=== PATIENT | female | born 1975 | race American Indian/Alaskan Native ===

== ENCOUNTER 2017-08-14 11:27 | Emergency (ER) | payer MEDICAID ==
[2017-08-14 12:39] VITALS: BP 151/95
--- NOTE | 2017-08-14 13:39 | Emergency Department Report ---
ED Headache HPI - General Chief Complaint: Headache Stated Complaint: HEADACHE FOR A COUPLE MONTHS Time Seen by Provider: 08/14/17 13:38 - History of Present Illness Allergies/Adverse Reactions: Allergies No Known Allergies Allergy (Unverified 08/14/17 12:35) ED Review of Systems ROS: Stated complaint: HEADACHE FOR A COUPLE MONTHS Other details as noted in HPI ED Past Medical Hx - Past Medical History Previous Medical History?: Yes Hx Hypertension: Yes Hx Diabetes: Yes Hx Psychiatric Treatment: Yes (Bipolar) Additional medical history: DVT - Surgical History Additional Surgical History: Sinus, Tonsillectomy, tubes in ears. - Social History Smoking Status: Never Smoker Substance Use Type: None ED Physical Exam - General Limitations: No Limitations ED Course Vital Signs 08/14/17 12:35 Temperature 98.5 F Pulse Rate 94 H Respiratory 20 Rate Blood Pressure 151/95 O2 Sat by Pulse 97 Oximetry Critical care attestation.: If time is entered above; I have spent that time in minutes in the direct care of this critically ill patient, excluding procedure time. ED Disposition Condition: Stable Referrals: PARMJIT BHATIA [Other] - 3-5 Days
--- NOTE | 2017-08-14 14:41 | Emergency Department Report ---
Chief Complaint: Headache Stated Complaint: HEADACHE FOR A COUPLE MONTHS Time Seen by Provider: 08/14/17 13:38 - HPI History of Present Illness: Patient here reports that she was scheduled to have sinus surgery at [facility] a couple months ago and they gave her anesthesia and she went into cardiac arrest after anesthesia and was resuscitated but she was out for 8 minutes. She said that she was on life support for a while. Family reports that patient has memory loss, headache and blurred vision 2 months. Patient said that she's been taking [id number] medication for headache but it's not helping. She said she had no follow-up since she had a cardiac arrest and she has not seen any specialists. Patient did not have sinus surgery due to cardiac arrest. Patient was discharged home from [facility] with no follow-up visit per patient. Neither the nausea or vomiting. - ROS Review of Systems: All systems are negative unless stated in HPI above. - Exam Vital Signs: Vital Signs 08/14/17 12:35 Temperature 98.5 F Pulse Rate 94 H Respiratory 20 Rate Blood Pressure 151/95 O2 Sat by Pulse 97 Oximetry Physical Exam: Gen.: A 41-year-old female in no acute distress. Mini neurological exam: GCS at 15, speech is clear and fluid. No facial drooping. Patient alert and oriented 3 Head: Traumatic, normocephalic. No contusion or abrasion noted. MSE screening note: Focused history and physical exam performed. Due to findings the following was ordered: ED Medical Decision Making - Medical Decision Making MDM: She has screened in emergency room by provider and to be seen by M.D. Appropriate diagnostics and lab ordered. ED Disposition for MSE Condition: Stable Referrals: PARMJIT BHATIA [Other] - 3-5 Days
[2017-08-14 15:25] LABS: Alanine Aminotransferase 10 units/L (7-56); Albumin 4.3 g/dL (3.9-5); Alkaline Phosphatase 64 units/L (35-129); Anion Gap 17 mmol/L; BUN/Creatinine Ratio 13; Blood Urea Nitrogen 8 mg/dL (7-17); Calcium 9.4 mg/dL (8.4-10.2); Carbon Dioxide 27 mmol/L (22-30); Chloride 104.5 mmol/L (98-107); Glucose 96 mg/dL (65-100); Potassium 3.7 mmol/L (3.6-5.0); Sodium 145 mmol/L (137-145); Total Protein 6.5 g/dL (6.3-8.2)
[2017-08-14 15:31] LABS: Bacteria,Urine 2+ /HPF (Negative); Bilirubin,Urine NEG (Negative); Blood,Urine NEG (Negative); Ketones,Urine NEG (Negative); Leukocyte Esterase,Urine LG (Negative); Mucus,Urine FEW /HPF; Nitrite,Urine POS (Negative); Protein,Urine <15 mg/dL mg/dL (Negative); Urobilinogen,Urine < 2.0 mg/dL (<2.0)
[2017-08-14 15:33] LABS: Basophils % (Auto) 0.9 % (0.0-1.8); Eosinophils % (Auto) 2.6 % (0.0-4.3); Hematocrit 41.2 % (30.3-42.9); Hemoglobin 13.4 gm/dl (10.1-14.3); Mean Corpuscular HGB Conc 33 % (30-34); Mean Corpuscular Hemoglobin 30 pg (28-32); Mean Corpuscular Volume 94 fl (79-97); Platelet Count 199 K/mm3 (140-440); Red Blood Count 4.41 M/mm3 (3.65-5.03); White Blood Count 6.3 K/mm3 (4.5-11.0)
[2017-08-14 15:41] LABS: INR 0.98 (0.87-1.13); Partial Thromboplastin Time 29.1 Sec. (24.2-36.6)
--- NOTE | 2017-08-14 16:06 | Cat Scan Report ---
CT scan of head without IV contrast: History: Post cardiac arrest with LOC for 8 minutes. Findings: Ventricles are normal in size and midline in location. No evidence of acute ischemia, hemorrhage or mass. No definite extra-axial fluid collection. Normal brainstem and cerebellum. Impression: Findings as detailed above.
--- NOTE | 2017-08-14 16:07 | Cat Scan Report ---
CT scan of sinuses: History: Post sinus surgery. Findings: The sinuses are well pneumatized. The wall appears intact. Minimal mucosal thickening is noted of right and left maxillary sinus. Minimal hypertrophy of the turbinates. Nasal septum is midline. Osteomeatal complexes are patent. Impression: No acute changes in the sinuses.
[2017-08-14] MEDS ORDERED: FIORICET PO ONE (16:35)
--- NOTE | 2017-08-14 16:39 | Emergency Department Report ---
HPI - General Chief Complaint: Headache Time Seen by Provider: 08/14/17 13:38 - HPI HPI: Room 34 The patient is a 41-year-old female presenting with a chief complaint of headache. The patient states she had sinus surgery in February 2017 and was "over medicated" leading to her "heart stopped for 8 minutes." The patient states ever since then she has had intermittent frontal headaches. The patient states now for the past 2 weeks and had been constant and radiates to the left side of her face. Patient denies any preceding trauma or fever. Patient is to nausea but denies vomiting. The patient states she has not yet sought medical attention for her headaches since they began. The patient gives her pain is scored 10/10 Location: Head Duration: [See above] Quality: Headache Severity:10/10 Modifying factors: Czij-yfz-[id number] medications only helped temporarily Context: [see above] Mode of transportation: [not driving] ED Past Medical Hx - Past Medical History Previous Medical History?: Yes Hx Hypertension: Yes Hx Diabetes: Yes Hx Psychiatric Treatment: Yes (Bipolar) Additional medical history: DVT - Surgical History Additional Surgical History: Sinus, Tonsillectomy, tubes in ears. - Family History Family history: no significant - Social History Smoking Status: Never Smoker Substance Use Type: None (denies illicit drug use) - Medications Home Medications: Home Medications Medication Instructions Recorded Confirmed Last Taken Type Butalb/Acetamin/Caff 50-325-40 2 tab PO Q8HR PRN #30 tablet 08/14/17 Unknown Rx [Fioricet] Ciprofloxacin HCl [Ciprofloxacin 500 mg PO Q12HR #14 tab 08/14/17 Unknown Rx TAB] ED Review of Systems ROS: Stated complaint: HEADACHE FOR A COUPLE MONTHS Other details as noted in HPI Comment: All other systems reviewed and negative Constitutional: denies: chills, fever Eyes: denies: eye pain, eye discharge, vision change ENT: denies: ear pain, throat pain Respiratory: denies: cough, shortness of breath, wheezing Cardiovascular: denies: chest pain, palpitations Endocrine: no symptoms reported Gastrointestinal: nausea. denies: abdominal pain, vomiting, diarrhea Genitourinary: denies: urgency, dysuria, discharge Musculoskeletal: denies: back pain, joint swelling, arthralgia Skin: denies: rash, lesions Neurological: headache Psychiatric: denies: anxiety, depression Hematological/Lymphatic: denies: easy bleeding, easy bruising Physical Exam - Physical Exam Vital Signs: Vital Signs 08/14/17 12:35 Temperature 98.5 F Pulse Rate 94 H Respiratory 20 Rate Blood Pressure 151/95 O2 Sat by Pulse 97 Oximetry Physical Exam: GENERAL: The patient is well-developed well-nourished female lying on stretcher not appearing to be in acute distress. [] HEENT: Normocephalic. Atraumatic. Extraocular motions are intact. Patient has moist mucous membranes. NECK: Supple. No meningitic signs are noted. No nuchal rigidity CHEST/LUNGS: Clear to auscultation. There is no respiratory distress noted. HEART/CARDIOVASCULAR: Regular. There is no tachycardia. There is no gallop rub or murmur. ABDOMEN: Abdomen is soft, nontender. Patient has normal bowel sounds. There is no abdominal distention. SKIN: There is no rash. There is no edema. There is no diaphoresis. NEURO: The patient is awake, alert, and oriented. The patient is cooperative. The patient has no focal neurologic deficits. The patient has normal speech. Cranial nerves II through XII grossly intact, no drift MUSCULOSKELETAL: There is no evidence of acute injury. ED Course Vital Signs 08/14/17 12:35 Temperature 98.5 F Pulse Rate 94 H Respiratory 20 Rate Blood Pressure 151/95 O2 Sat by Pulse 97 Oximetry ED Medical Decision Making - Lab Data Result diagrams: 08/14/17 14:50 08/14/17 14:50 Laboratory Tests 08/14/17 08/14/17 08/14/17 14:50 14:50 14:50 WBC 6.3 RBC 4.41 Hgb 13.4 Hct 41.2 MCV 94 MCH 30 MCHC 33 RDW 16.0 H Plt Count 199 Lymph % (Auto) 50.9 H [place] % (Auto) 7.3 Eos % (Auto) 2.6 Baso % (Auto) 0.9 Lymph # 3.2 [place] # 0.5 Eos # 0.2 Baso # 0.1 Seg Neutrophils % 38.3 L Seg Neutrophils # 2.4 PT INR APTT Sodium 145 Potassium 3.7 Chloride 104.5 Carbon Dioxide 27 Anion Gap 17 BUN 8 Creatinine 0.6 L Estimated GFR > 60 BUN/Creatinine Ratio 13 Glucose 96 Calcium 9.4 Total Bilirubin 0.30 AST 11 ALT 10 Alkaline Phosphatase 64 Total Protein 6.5 Albumin 4.3 Albumin/Globulin Ratio 2.0 HCG, Qual Negative Urine Color Urine Turbidity Urine pH Ur Specific [place] Urine Protein Urine Glucose (UA) Urine Ketones Urine Blood Urine Nitrite Urine Bilirubin Urine Urobilinogen Ur Leukocyte Esterase Urine WBC (Auto) Urine RBC (Auto) Urine Bacteria (Auto) Urine Mucus 08/14/17 08/14/17 14:50 15:06 WBC RBC Hgb Hct MCV MCH MCHC RDW Plt Count Lymph % (Auto) [place] % (Auto) Eos % (Auto) Baso % (Auto) Lymph # [place] # Eos # Baso # Seg Neutrophils % Seg Neutrophils # PT 13.5 INR 0.98 APTT 29.1 Sodium Potassium Chloride Carbon Dioxide Anion Gap BUN Creatinine Estimated GFR BUN/Creatinine Ratio Glucose Calcium Total Bilirubin AST ALT Alkaline Phosphatase Total Protein Albumin Albumin/Globulin Ratio HCG, Qual Urine Color Yellow Urine Turbidity Clear Urine pH 6.0 Ur Specific [place] 1.013 Urine Protein <15 mg/dl Urine Glucose (UA) Neg Urine Ketones Neg Urine Blood Neg Urine Nitrite Pos Urine Bilirubin Neg Urine Urobilinogen < 2.0 Ur Leukocyte Esterase Lg Urine WBC (Auto) 47.0 H Urine RBC (Auto) 8.0 Urine Bacteria (Auto) 2+ Urine Mucus Few - Radiology Data Radiology results: report reviewed (CT head, CT sinuses), image reviewed (CT head, CT sinuses) CT scan of head without IV contrast: History: Post cardiac arrest with LOC for 8 minutes. Findings: Ventricles are normal in size and midline in location. No evidence of acute ischemia, hemorrhage or mass. No definite extra-axial fluid collection. Normal brainstem and cerebellum. Impression: Findings as detailed above. Transcribed By: PTP Dictated By: JANIYA LUO MD Electronically Authenticated By: JANIYA LUO MD Signed Date/Time: 08/14/[address] scan of sinuses: History: Post sinus surgery. Findings: The sinuses are well pneumatized. The wall appears intact. Minimal mucosal thickening is noted of right and left maxillary sinus. Minimal hypertrophy of the turbinates. Nasal septum is midline. Osteomeatal complexes are patent. Impression: No acute changes in the sinuses. Transcribed By: PTP Dictated By: JANIYA LUO MD Electronically Authenticated By: JANIYA LUO MD Signed Date/Time: 08/14/17 1602 - Differential Diagnosis headache, ICH, migraine, intracranial mass Critical care attestation.: If time is entered above; I have spent that time in minutes in the direct care of this critically ill patient, excluding procedure time. ED Disposition Clinical Impression: Headache, UTI (urinary tract infection) Disposition: TO HOME OR SELFCARE Is pt being admited?: No Does the pt Need Aspirin: No Condition: Stable Instructions: Acute Headache (ED), Migraine Headache (ED) Additional Instructions: Return to the emergency department immediately should you develop worsening symptoms, fever, inability to tolerate food or liquid or any other concerns. Prescriptions: Butalb/Acetamin/Caff 50-325-40 [Fioricet] 2 tab PO Q8HR PRN #30 tablet PRN Reason: Headache Ciprofloxacin HCl [Ciprofloxacin TAB] 500 mg PO Q12HR #14 tab Referrals: PARMJIT BHATIA [Other] - 3-5 Days ROBERTA HOLLINGSWORTH MD [Staff Physician] - 3-5 Days (Dr. Hollingsworth is a neurologist. Please follow up with him for further evaluation) Time of Disposition: 16:41
== END 2017-08-14 16:58 | disposition home or self-care (01) ==
LOC: ED 11:27
DX: N39.0 Urinary tract infection, site not specified (principal); R51 Headache; E11.9 Type 2 diabetes mellitus without complications; F31.9 Bipolar disorder, unspecified
CPT/HCPCS: 36415; 70450; 70486; 80053; 81001; 84703; 85025; 85610; 85730

== ENCOUNTER 2017-10-18 16:59 | Emergency (ER) | payer MEDICAID ==
[2017-10-18] MEDS ORDERED: NORCO 7.5/325 PO ONE (21:58)
--- NOTE | 2017-10-18 22:26 | Emergency Department Report ---
Upper Extremity - HPI Chief Complaint: Pain General Stated Complaint: PAIN IN LEFT ARM FINGERS ARE NUMB Time Seen by Provider: 10/18/17 21:15 Upper Extremity: Left Shoulder (pain with ROM) Occurred When: >5 Days (1 week) Mechanism: Other (denies injury) Severity: severe Symptoms: Yes Pain with Movement, Yes Limited Range of Movement, Yes Numbness ( left index finger and thumb), No Deformity, No Weakness, No Swelling, No Bruising/Ecchymosis, No Laceration or Abrasion Other History: This is a 41 y.o. female presents with left shoulder pain for 1 week. Patient states pain is 8/10 on pain scale. She is taking ibuprofen and tylenol for pain. She is experiencing numbness in thumb and index finger. History of DM & HTN. Denies diabetes neuropathy symptoms prior to this week. Denies chest pain, SOB, wheezing, swelling, or redness. ED Review of Systems ROS: Stated complaint: PAIN IN LEFT ARM FINGERS ARE NUMB Other details as noted in HPI Constitutional: denies: chills, fever Respiratory: denies: cough, shortness of breath, wheezing Cardiovascular: denies: chest pain, palpitations Gastrointestinal: denies: abdominal pain, nausea, diarrhea Musculoskeletal: arthralgia (left shoulder) Skin: denies: rash, lesions Neurological: numbness (left thumb and index finger). denies: headache, weakness, paresthesias, confusion, abnormal gait, vertigo ED Past Medical Hx - Past Medical History Hx Hypertension: Yes Hx Diabetes: Yes Hx Psychiatric Treatment: Yes (Bipolar) Additional medical history: DVT - Surgical History Additional Surgical History: Sinus, Tonsillectomy, tubes in ears. - Social History Smoking Status: Never Smoker - Medications Home Medications: Home Medications Medication Instructions Recorded Confirmed Last Taken Type Butalb/Acetamin/Caff 50-325-40 2 tab PO Q8HR PRN #30 tablet 08/14/17 Unknown Rx [Fioricet] Ciprofloxacin HCl [Ciprofloxacin 500 mg PO Q12HR #14 tab 08/14/17 Unknown Rx TAB] Gabapentin [Neurontin] 300 mg PO BID #30 cap 10/18/17 Unknown Rx Tizanidine HCl [Zanaflex] 4 mg PO TID #20 capsule 10/18/17 Unknown Rx traMADol [Ultram 50 MG tab] 50 mg PO Q6HR PRN #20 tablet 10/18/17 Unknown Rx Upper Extremity Exam - Exam General: Vital signs noted. No distress. Alert and acting appropriately. Head and Torso: No HEENT Abnormality, No Neck Tenderness, No Chest/Lungs Abnormality, No Abdominal Tenderness, No Back Tenderness Shoulder Exam: Yes AC Joint Tenderness (left), No Shoulder Tenderness, No Clavicle Tenderness, No Normal Range of Motion in Shoulder (limited due to pain around 60-90 degrees), No Shoulder Deformity Arm Exam: No Arm/Humerus Tenderness, No Arm Deformity Elbow: Yes Normal Range of Motion in Elbow, No Elbow Tenderness, No Elbow Deformity Forearm: No Forearm Tenderness, No Forearm Deformity, No Pain with Pronation, No Pain with Supination Wrist: Yes Normal ROM in Wrist, No Wrist Tenderness, No Wrist Deformity, No Snuffbox Tenderness, No Pain with Axial Thumb Compression Hand: Yes Normal ROM in Digit(s), No Hand Tenderness, No Hand Deformity, No Digit Tenderness, No Digit(s) Deformity, No Tendon Dysfunction CMS Exam: Yes Normal Distal Pulses, Yes Normal Capillary Refill, No Broken Skin , No Normal Distal Sensation (decreased sensation of 1st and 2nd distal phalanx) ED Course Vital Signs 10/18/17 10/18/17 18:04 22:03 Temperature 97.1 F L Pulse Rate 82 Respiratory 18 18 Rate Blood Pressure 146/79 O2 Sat by Pulse 96 Oximetry ED Medical Decision Making - Medical Decision Making This is a 41 y.o. female presents with left shoulder pain, numbness to left thumb and index finger. She woke up 1 week ago with these symptoms. She is taking ibuprofen and tylenol w/o improvement. History of DM, HTN Denies swelling, redness, chest pain, SOB, and weakness On physical assessment, LUE, limited ROM for pain around 60-90 degrees, tenderness over ac joint, negative swelling, redness, or warmth, diminished sensation to 1st & 2nd distal phalanx Suspected impingement syndrome of left shoulder Discharged home with ibuprofen, tizanidine, and gabapentin. Take medication PRN to control pain. Use heat for swelling or pain. Encouraged to do ROM exercises. Follow up with PCP for possible steroid injection. Critical care attestation.: If time is entered above; I have spent that time in minutes in the direct care of this critically ill patient, excluding procedure time. ED Disposition Clinical Impression: Left shoulder pain Qualifiers: Chronicity: acute Qualified Code(s): M25.512 - Pain in left shoulder Shoulder impingement Qualifiers: Laterality: left Qualified Code(s): M75.42 - Impingement syndrome of left shoulder Disposition: TO HOME OR SELFCARE Is pt being admited?: No Does the pt Need Aspirin: No Condition: Stable Instructions: Arthralgia (ED) Additional Instructions: Avoid complete rest of left shoulder. Do daily range of motion movements and demonstrated in exam room. Avoid excessive use. Use heat 4 times daily. Follow up with Primary Care Provider. Prescriptions: Gabapentin [Neurontin] 300 mg PO BID #30 cap Tizanidine HCl [Zanaflex] 4 mg PO TID #20 capsule traMADol [Ultram 50 MG tab] 50 mg PO Q6HR PRN #20 tablet PRN Reason: Pain Referrals: PRIMARY CARE, [Primary Care Provider] - 3-[address] [facility] [place] [Outside] - 3-5 Days [facility] [Outside] - 3-5 Days Time of Disposition: 23:01 Print Language: THAI
[2017-10-18 23:30] VITALS: BP 144/94
== END 2017-10-18 23:30 | disposition home or self-care (01) ==
LOC: ED 16:59
DX: M75.42 Impingement syndrome of left shoulder (principal); R20.0 Anesthesia of skin; I10 Essential (primary) hypertension; E11.9 Type 2 diabetes mellitus without complications; F31.9 Bipolar disorder, unspecified; Z90.89 Acquired absence of other organs; Z86.718 Personal history of other venous thrombosis and embolism
CPT/HCPCS: 36415; 82962; 85379; 99283